=== PATIENT | female | born 1945 | race Caucasian/White ===

== ENCOUNTER → 2017-08-03 | Outpatient (CLI) | payer BC ==
--- NOTE | 2017-08-03 13:53 | MAMMOGRAPHY REPORT ---
BILATERAL DIGITAL SCREENING MAMMOGRAM WITH CAD: 08/03/2017 CLINICAL HISTORY: Routine screening. Patient has no complaints. TECHNIQUE: Current study was also evaluated with a Computer Aided Detection (CAD) system. Bilateral CC and MLO views were obtained. COMPARISON: Comparison is made to exams dated: 08/02/2016 mammogram, 07/31/2015 mammogram, 07/30/2014 m ammogram, 09/17/2013 mammogram, 09/13/2012 mammogram, and 08/24/2011 mammogram - [facility]. BREAST COMPOSITION: There are scattered areas of fibroglandular density in both breasts. FINDINGS: No suspicious masses, calcifications, or areas of architectural distortion are noted in ei ther breast. There has been no significant interval change compared to prior exams. IMPRESSION: ACR BI-RADS CATEGORY 1: NEGATIVE There is no mammographic evidence of malignancy. A 1 year screening mammogram is recommended. The pa tient will receive written notification of the results. Approximately 10% of breast cancers are not detected with mammography. A negative mammographic report should not delay biopsy if a clinically suggestive mass is present. Shandra Escobar M.D. /:08/03/2017 11:52:54 Cheese Weigher: Yesica JACOME(Linsey)(M), [facility] letter sent: Normal 1/2 BI-RADS Code: ACR BI-RADS Category 1: Negative
== END | disposition home or self-care (01) ==
LOC: C.MAMM 09:04
PROVIDERS: ATTEND Internal Medicine
DX: Z12.31 Encounter for screening mammogram for malignant neoplasm of breast (principal)

== ENCOUNTER → 2017-08-14 | Outpatient (CLI) | payer BC ==
[2017-08-14 12:15] LABS: BASO % 0.2 %; BASO ABS # 0.01 K/uL (0-0.2); COMPLETE YES; EOS % 2.3 %; HEMATOCRIT 40.3 % (37-47); IG% 0.2 %; LYMPH % 30.1 %; LYMPH ABS # 1.58 K/uL (1.2-3.4); MEAN CORPUSCULAR HEMOGLOBIN 28.5 pg (25-34); MEAN CORPUSCULAR HGB CONC 33.5 g/dl (32-36); MEAN PLATELET VOLUME 11.2 fL (7.4-10.4); MONO % 6.5 %; NEUT % 60.7 %; PLATELET COUNT 256 K/uL (130-400); RED BLOOD COUNT 4.74 M/uL (4.2-5.4); WHITE BLOOD COUNT 5.25 K/uL (4.8-10.8)
[2017-08-14 13:46] LABS: ALT/SGPT 19 U/L (12-78); BLOOD UREA NITROGEN 14 mg/dl (7-18); BUN/CREATININE RATIO 21.3 (10-20); CALCIUM 8.8 mg/dl (8.5-10.1); CARBON DIOXIDE 29 mmol/L (21-32); CHLORIDE 108 mmol/L (98-107); CREATININE 0.66 mg/dl (0.60-1.20); GLUCOSE 88 mg/dl (70-99); POTASSIUM 4.3 mmol/L (3.5-5.1); SODIUM 143 mmol/L (136-145)
[2017-08-14 13:58] LABS: ALKALINE PHOSPHATASE 90 U/L (45-117); AST/SGOT 13 U/L (15-37); CHOLESTEROL 221 mg/dl (0-200); HDL CHOLESTEROL 74 mg/dl; LDL CHOLESTEROL CALCULATED 124 mg/dl; THYROID STIMULATING HORMONE 0.606 uIu/ml (0.300-4.500); TRIGLYCERIDES 116 mg/dl (0-150); VERY LOW DENSITY LIPOPROT CALC 23 mg/dl
== END | disposition home or self-care (01) ==
LOC: C.LABBFT 09:16
PROVIDERS: ATTEND Internal Medicine
DX: Z00.00 Encounter for general adult medical examination without abnormal findings (principal); R53.83 Other fatigue; E78.5 Hyperlipidemia, unspecified

== ENCOUNTER 2018-05-26 20:21 | Emergency (ER) | payer BC ==
[~2018-05-26] VITALS: Ht 160 cm; Wt 83.1 kg
[2018-05-26 20:25] VITALS: BP 176/107; TEMP 36.6; Ht 160 cm; Wt 83.1 kg
--- NOTE | 2018-05-26 21:03 | EMERGENCY ROOM VISIT NOTE ---
History First contact with patient: 20:29 Chief Complaint: LEG PAIN,LEG INJURY Stated Complaint: LYMPHEDEMA RIGHT LEG, HIT WITH CAR DOOR History of Present Illness The patient is a 73 year old female who presents to the Emergency Room with complaints of a laceration to her right lower leg. The patient states that she was at a friend's and when she was leaving she accidentally shut the car door on her right leg. She called her primary care provider and they recommended that she come here. She states that she has primary lymphedema and has had lymph drainage from the area since the injury occurred. The laceration occurred a few hours ago. She denies any pain in the area and states that she has decreased feeling at baseline. Review of Systems A complete 6 point review of systems was reviewed with the patient with pertinent positives and negatives as per history of present illness. All else were negative. Past Medical/Surgical History Medical Problems: (1) Lymphedema Social History Smoking Status: Never Smoker Housing Status: lives with family Physical Exam Vital Signs Date Time Temp Pulse Resp B/P (MAP) Pulse Ox O2 Delivery O2 Flow Rate FiO2 05/26/18 21:14 74 97 05/26/18 20:25 36.6 91 18 176/107 95 Room Air Physical Exam VITALS: Vitals are noted on the nurse's note and reviewed by myself. Vital signs stable. GENERAL: This is a 73-year-old, in no acute distress, nondiaphoretic, well- developed well-nourished. SKIN: There is a V-shaped flap-like laceration to the right lower leg which measures 4 cm in length. There is no active bleeding from the area. No foreign body seen in the base of the wound. NEURO: Patient was alert and oriented to person place and time. Distal sensation intact. Medical Decision & Procedures Procedure Verbal consent was obtained to perform the procedure. The laceration was cleansed with sterile saline and Betadine. Steri-Strips were used to approximate the laceration. A bulky bandage was then applied. The patient tolerated the procedure well. Hemostasis was achieved. No complications were met. Medical Decision The patient was evaluated as above. She presents with a laceration to the right lower leg. Steri-Strips were used to approximate the wound. The patient was advised to observe the wound closely and return or see her PCP for any signs of infection. She verbalized understanding of my assessment and treatment plan and was discharged home in good condition. Medication Reconcilliation Current Medication List: was personally reviewed by me Blood Pressure Screening Patient's blood pressure: Elevated blood pressure Blood pressure disposition: Elevated BP felt to be situational Impression Primary Impression: Laceration of lower leg Departure Information Dispostion Home / Self-Care Condition GOOD Referrals Pro,Kj Montes M.D. (PCP) Patient Instructions [facility] Additional Instructions Leave the Steri-Strips in place until they fall off on their own. You may change your dressing as needed when it becomes saturated. Follow-up with your primary care provider this week for recheck. Return here or go to your primary care provider for any signs of infection such as increasing redness, swelling, puslike drainage or for any other new/ concerning symptoms. Problem Qualifiers Primary Impression: Laceration of lower leg Encounter type: initial encounter Laterality: right Qualified Codes: S81.811A - Laceration without foreign body, right lower leg, initial encounter
[2018-05-26 21:14] VITALS: PULSE 74; O2SAT 97
== END 2018-05-26 21:15 | disposition home or self-care (01) ==
LOC: C.EDB 20:23 → C.EDD 21:15
DX: S81.811A Laceration without foreign body, right lower leg, initial encounter (principal); W22.8XXA Striking against or struck by other objects, initial encounter; Z87.2 Personal history of diseases of the skin and subcutaneous tissue

== ENCOUNTER → 2018-06-13 | Outpatient (CLI) | payer BC ==
[2018-06-13 13:27] LABS: ALBUMIN 3.6 gm/dl (3.4-5.0); ALKALINE PHOSPHATASE 101 U/L (45-117); ALT/SGPT 19 U/L (12-78); AST/SGOT 14 U/L (15-37); BLOOD UREA NITROGEN 18 mg/dl (7-18); CALCIUM 9.6 mg/dl (8.5-10.1); CARBON DIOXIDE 31 mmol/L (21-32); CHOLESTEROL 235 mg/dl (0-200); CREATININE 0.78 mg/dl (0.60-1.20); GLUCOSE 99 mg/dl (70-99); LDL CHOLESTEROL CALCULATED 146 mg/dl; POTASSIUM 4.8 mmol/L (3.5-5.1); SODIUM 141 mmol/L (136-145); TOTAL PROTEIN 7.1 gm/dl (6.4-8.2)
== END | disposition home or self-care (01) ==
LOC: C.LABBFT 08:47
PROVIDERS: ATTEND Internal Medicine
DX: E78.5 Hyperlipidemia, unspecified (principal); I89.0 Lymphedema, not elsewhere classified; E55.9 Vitamin D deficiency, unspecified